=== PATIENT | female | born 1955 | race African-American/Black ===

== ENCOUNTER 2020-08-25 09:02 | Emergency (ER) | payer MEDICARE ==
[~2020-08-25] VITALS: Ht 167.6 cm; Wt 120.0 kg
[2020-08-25] MEDS ORDERED: METO50 PO (09:06)
[2020-08-25] MEDS ORDERED: INSNOV SQ (09:06)
[2020-08-25] MEDS ORDERED: ATOR40TA28 PO (09:06)
[2020-08-25] MEDS ORDERED: FERR-82 PO (09:06)
[2020-08-25] MEDS ORDERED: FURO40 PO (09:06)
[2020-08-25] MEDS ORDERED: LOSA25TA21 PO (09:06)
[2020-08-25] MEDS ORDERED: ACETAMINOPHEN 500 MG TABLET PO ONE (09:30)
[2020-08-25 09:31] LABS: GLUCOSE,POINT OF CARE 336 MG/DL (70-110)
[2020-08-25 11:18] VITALS: BP 124/84
== END 2020-08-25 11:40 | disposition home or self-care (01) ==
LOC: EMS 09:12
DX: S92.511A Displaced fracture of proximal phalanx of right lesser toe(s), initial encounter for closed fracture (principal); I11.9 Hypertensive heart disease without heart failure; E11.9 Type 2 diabetes mellitus without complications; Z79.4 Long term (current) use of insulin; W19.XXXA Unspecified fall, initial encounter; Y93.89 Activity, other specified; Y92.89 Other specified places as the place of occurrence of the external cause; Y99.8 Other external cause status
CPT/HCPCS: 99283